=== PATIENT | female | born 1980 | race Hispanic/Latino ===

== ENCOUNTER 2020-03-29 05:33 | Emergency (ER) | payer OTHER, SELFPAY ==
[2020-03-30 10:25] LABS: SARS-CoV-2 MS2 Positive; SARS-CoV-2 N Gene Negative; SARS-CoV-2 S Gene Negative; SARS-CoV-2 by NAA Not Detected (NotDetected); SARS-CoV-2 orf1ab Negative
== END 2020-03-29 06:24 | disposition home or self-care (01) ==
LOC: BURERS 05:33
DX: R55 Syncope and collapse (principal); Z20.828 Contact with and (suspected) exposure to other viral communicable diseases
CPT/HCPCS: 87635; 93005; U0003

== ENCOUNTER 2021-03-29 10:24 | Emergency (ER) | payer BC, OTHER ==
[2021-03-29] MEDS ORDERED: Penicillin V Potassium 250 MG TAB ONE (10:53)
== END 2021-03-29 10:55 | disposition home or self-care (01) ==
LOC: BURERS 10:24
DX: K04.7 Periapical abscess without sinus (principal); L03.211 Cellulitis of face
CPT/HCPCS: 99283